=== PATIENT | male | born 1985 | race Caucasian/White ===

== ENCOUNTER 2025-06-04 02:13 | Emergency (ER) | payer SELFPAY ==
[2025-06-04] MEDS: Rabies Immune Globulin/PF (HyperRAB) 300 UNIT/ML 1 ML SDV IM ONE (03:14)
[2025-06-04] MEDS: Rabies Vaccine (Avian) 2.5 Unit Inj Kit IM ONE (03:15)
== END 2025-06-04 03:30 | disposition home or self-care (01) ==
LOC: MW.ED 02:13
DX: Z20.3 Contact with and (suspected) exposure to rabies (principal); Z23 Encounter for immunization
CPT/HCPCS: 90375; 90471; 90675; 96372; 99284; 99284-25

== ENCOUNTER 2025-06-10 00:25 | Emergency (ER) | payer SELFPAY ==
[2025-06-10] MEDS: Rabies Vaccine (Avian) 2.5 Unit Inj Kit IM ONE (00:50)
== END 2025-06-10 00:55 | disposition home or self-care (01) ==
LOC: MW.ED 00:25
DX: Z23 Encounter for immunization (principal)
CPT/HCPCS: 90471; 90675; 99281-25; 99283

== ENCOUNTER 2025-06-13 23:35 | Emergency (ER) | payer SELFPAY ==
[2025-06-14] MEDS: Rabies Vaccine (Avian) 2.5 Unit Inj Kit IM ONE (00:36)
== END 2025-06-14 00:42 | disposition home or self-care (01) ==
LOC: MW.ED 23:35
DX: Z23 Encounter for immunization (principal); R03.0 Elevated blood-pressure reading, without diagnosis of hypertension
CPT/HCPCS: 90471; 90675; 99281-25; 99283

== ENCOUNTER 2025-06-24 21:17 | Emergency (ER) | payer SELFPAY ==
[2025-06-24] MEDS: Rabies Vaccine (Avian) 2.5 Unit Inj Kit IM ONE (21:43)
== END 2025-06-24 21:50 | disposition left against medical advice (07) ==
LOC: MW.ED 21:17
DX: Z29.14 Encounter for prophylactic rabies immune globulin (principal); Z23 Encounter for immunization
CPT/HCPCS: 90471; 90675; 99281-25